=== PATIENT | female | born 1955 | race Caucasian/White ===

== ENCOUNTER 2019-06-09 08:09 | Emergency (ER) | payer OTHER ==
--- OUTSIDE RECORDS SUMMARY | 2019-06-09 08:12 | XMS REPORT ---
:1955 Author Organization [employer] Care Team Providers Name Role Phone Henry, Na Provider Role Unavailable Allergies No Known Allergies Problems Problem Type Condition Code Onset Dates Condition Status Problem Alcoholic cirrhosis of liver with K70.31 Active ascites Problem Jaundice due to hepatitis K75.9 Active Problem Unsteady gait R26.81 Active Medications No Known Medications Results No Known Results Summary Purpose [employer] Submission
--- OUTSIDE RECORDS SUMMARY | 2019-06-09 08:12 | XMS REPORT ---
:1955 Author Organization e[employer] Care Team Providers Name Role Phone Henry, Na Provider Role Unavailable Allergies, Adverse Reactions, Alerts Substance Reaction Event Type Hydrocodone-Acetaminophen Info Not Available Drug Allergy Problems Problem Type Condition Code Onset Dates Condition Status Assessment Hospital discharge follow-up Z09 Active Problem Alcoholic cirrhosis of liver with K70.31 Active ascites Problem Jaundice due to hepatitis K75.9 Active Problem Unsteady gait R26.81 Active Assessment Jaundice due to hepatitis K75.9 Active Assessment Unsteady gait R26.81 Active Assessment Alcoholic cirrhosis of liver with K70.31 Active ascites Medications Medication Code System Code Instructions Start Date End Date Status Dosage Lactulose [facility] [id number] 20 GM/30ML Orally May 12, July 10, Active 30 ml Once a day 2019 2019 Results No Known Results Summary Purpose eClinicalWorks Submission
--- OUTSIDE RECORDS SUMMARY | 2019-06-09 08:12 | XMS REPORT | Summary of Care ---
:1955 Author Organization [facility] Address [address] [place] [address] Care Team Providers Name Role Phone Pcp, Patient Does Not Have A Primary Care Provider Encounter Details Date Type Department Care Team Description 05/11/2019 Orders Only [facility] Doctor Unassigned, No [address] [facility] [place] [address] [address] [place] [address] Allergies Active Allergy Reactions Severity Noted Date Comments Hydrocodone Itching 01/22/2016 documented as of this encounter (statuses as of 05/11/2019) Medications Medication Sig Dispensed Refills Start Date End Date Status ondansetron 4 mg Take 1 tablet 15 tablet 0 04/29/2019 Active disintegrating by mouth every tabletIndications: 8 (eight) hours Hyperbilirubinemia as needed for Nausea and Vomiting (N/V). documented as of this encounter (statuses as of 05/11/2019) Active Problems Problem Noted Date E44.0 Moderate protein calorie malnutrition 04/19/2019 Jaundice 04/18/2019 Left wrist pain 03/05/2016 documented as of this encounter (statuses as of 05/11/2019) Social History Tobacco Use Types Packs/Day Years Used Date Never Smoker Smokeless Tobacco: Never Used Alcohol Use Drinks/Week oz/Week Comments Yes 0 Standard drinks or equivalent 0.0 Alcohol Habits Answer Date Recorded How often do you have a drink containing 4 or more times a week 04/18/2019 alcohol? How many drinks containing alcohol do you have 1 or 2 04/18/2019 on a typical day when you are drinking? How often do you have six or more drinks on one Never 04/18/2019 occasion? Sex Assigned at Date Recorded Not on file Job Start Date Occupation Industry Not on file Not on file Not on file Travel History Travel Start Travel End No recent travel history available. documented as of this encounter Last Filed Vital Signs Not on filedocumented in this encounter Plan of Treatment Health Maintenance Due Date Last Done Comments PNEUMOCOCCAL 0-64 YEARS COMBINED SERIES (1 of 1 - 1961 PPSV23) DTaP,Tdap,and Td Vaccines (1 - Tdap) 1966 PAP SMEAR 02/23/1976 Breast Cancer Screening (MAMMOGRAM) 1995 Zoster Recombinant Vaccine (SHINGRIX) (1 of 2) 2005 INFLUENZA VACCINE (#1) 2018 COLONOSCOPY 04/26/2029 04/26/2019 HEPATITIS C (HCV) SCREEN Completed 04/19/2019 documented as of this encounter Procedures Procedure Name Priority Date/Time Associated Diagnosis Comments POWER OF ECONOMICS INSTRUCTOR Routine 05/11/2019 12:01 AM MEDIA ANALYST documented in this encounter Results Not on filedocumented in this encounter Insurance Payer Benefit Plan / Subscriber ID Effective Dates Phone Address Type Group HIM [id number] 2018-Present PPO [id number] ACTED RACTED documented as of this encounter Advance Directives Name Relationship Healthcare Agent Relationship Communication Samantha Morrissey Child First alternate healthcare agent
--- OUTSIDE RECORDS SUMMARY | 2019-06-09 08:12 | XMS REPORT ---
:1955 [facility] Address [address] [place] [address] [address] [place] [address] Care Team Providers Name Role Phone ELIUDCliffordMORALES Unavailable Unavailable Problems This patient has no known problems. Allergies, Adverse Reactions, Alerts This patient has no known allergies or adverse reactions. Medications This patient has no known medications. Results Test Description Test Time Test Comments Text Results Atomic Results Result Comments LIVER IMAGING, 2019-05-27 16:51:00 Referring: Dr. Panchal FINAL REPORT [id number] PROCEDURE: processing LIVER/SPLEEN SCAN - TOMOGRAPHIC w/Quantitative Analysis CPT CODE: [id number] INDICATION: Hepatic Failure, cirrhosis PROTOCOL: 10.9 mCi of Tc-99m sulfur colloid was injected intravenously. Tomographic and selected planar images of the upper abdomen were obtained. Hepatic function was assessed by quantitative analysis using HEPATIQ software. FINDINGS: The liver has small with normal shape. Tracer activity in the liver is markedly decreased. Perfused Hepatic Mass (PHM) by HEPATIQ was 24.7. (Reference Range=>100). The spleen has mildly enlarged. Tracer activity in the spleen is uniform. Activity in the bone marrow is increased. IMPRESSION: 1. There is evidence of severe hepatocellular dysfunction.2. PHM is 24.7. Signed: Donta Santana MDReport Verified Date/Time: 05/27/2019 16:51:13 Reading Location: [address] Reading Room TITIS B SURFACE ANTIBODY 2019-05-20 19:46:00 Test Item Value Reference Range Comments HEPATITIS B SURFACE ANTIBODY (BEAKER) (test nlmy=821) 11.0 mIU/mL <8.0 Java Oracle Developer ID - DBHEPATITIS A ANTIBODY, [id number] 19:46:00 Test Item Value Reference Range Comments HEPATITIS A IGG ANTIBODY (BEAKER) (test xmlb=0225) Reactive Nonreactive Java [employer] Developer ID - DBALPHA FETOPROTEIN (AFP), TUMOR [id number] 19:45:00 Test Item Value Reference Range Comments ALPHA-FETOPROTEIN (BEAKER) (test swob=0941) 4.6 ng/mL <10.0 Java [employer] Developer ID - [id number] 16:00:00 Test Item Value Reference Range Comments MAGNESIUM (BEAKER) (test evqr=930) 1.8 mg/dL 1.6-2.6 Java [employer] Developer ID - BSBASIC METABOLIC [id number] 16:00:00 Test Item Value Reference Range Comments SODIUM (BEAKER) (test 136 meq/L 136-145 grla=931) POTASSIUM (BEAKER) (test 3.6 meq/L 3.5-5.1 ssxq=101) CHLORIDE (BEAKER) (test 105 meq/L 98-107 pvdg=122) CO2 (BEAKER) (test 23 meq/L 22-29 aevr=403) BLOOD UREA NITROGEN 8 mg/dL 7-21 (BEAKER) (test izrn=593) CREATININE (BEAKER) (test 0.57 mg/dL 0.57-1.25 fgcx=798) GLUCOSE RANDOM (BEAKER) 80 mg/dL 70-105 (test bbdr=807) CALCIUM (BEAKER) (test 9.0 mg/dL 8.4-10.2 wwfr=859) EGFR (BEAKER) (test 107 mL/min/1.73 sq m ESTIMATED GFR IS NOT suxq=7322) ACCURATE CREATININE CLEARANCE IN PREDICTING GLOMERULAR FILTRATION RATE. ESTIMATED GFR IS NOT APPLICABLE FOR DIALYSIS PATIENTS. Java Oracle Developer ID - BSSpecimen markedly ictericHEPATIC FUNCTION [id number] 16:00: 00 Test Item Value Reference Range Comments TOTAL PROTEIN (BEAKER) (test yixi=486) 7.3 gm/dL 6.0-8.3 ALBUMIN (BEAKER) (test eqyj=2448) 3.1 g/dL 3.5-5.0 BILIRUBIN TOTAL (BEAKER) (test catq=554) 11.2 mg/dL 0.2-1.2 BILIRUBIN DIRECT (BEAKER) (test pobu=890) 3.8 mg/dL 0.1-0.5 ALKALINE PHOSPHATASE (BEAKER) (test vdvf=426) 172 U/L 40-150 AST (SGOT) (BEAKER) (test yzoe=203) 54 U/L 5-34 ALT (SGPT) (BEAKER) (test faho=295) 23 U/L 6-55 Java Oracle Developer ID - BSSpecimen markedly ictericPROTHROMBIN [id number] 15:45:00 Test Item Value Reference Range Comments PROTIME (BEAKER) (test ydxj=914) 24.6 seconds 11.9-14.2 INR (BEAKER) (test uzzc=041) 2.3 <=5.9 Effective 09/16/2018: PT Reference Range ChangeNew: 11.9-14.2 Previous: 11.7- 14.7RECOMMENDED COUMADIN/WARFARIN INR THERAPY RANGESSTANDARD DOSE: 2.0-3.0 Includes: PROPHYLAXIS for venous thrombosis, systemic embolization; TREATMENT for venous thrombosis and/or pulmonary embolus.HIGH RISK: Target INR is2.5-3.5 for patients wiht mechanical heart valves.CBC W/PLT COUNT & AUTO [id number] 15:36:00 Test Item Value Reference Range Comments WHITE BLOOD CELL COUNT (BEAKER) (test ujyq=115) 6.2 K/ L 3.5-10.5 RED BLOOD CELL COUNT (BEAKER) (test kved=214) 2.06 M/ L 3.93-5.22 HEMOGLOBIN (BEAKER) (test hdzf=666) 8.1 GM/DL 11.2-15.7 HEMATOCRIT (BEAKER) (test bzft=764) 23.7 % 34.1-44.9 MEAN CORPUSCULAR VOLUME (BEAKER) (test rest=399) 115.0 fL 79.4-94.8 MEAN CORPUSCULAR HEMOGLOBIN (BEAKER) (test 39.3 pg 25.6-32.2 dwch=328) MEAN CORPUSCULAR HEMOGLOBIN CONC (BEAKER) (test 34.2 GM/DL 32.2-35.5 rhut=485) RED CELL DISTRIBUTION WIDTH (BEAKER) (test 18.5 % 11.7-14.4 giff=150) PLATELET COUNT (BEAKER) (test rqdw=206) 74 K/CU MM 150-450 MEAN PLATELET VOLUME (BEAKER) (test nujp=845) 9.5 fL 9.4-12.3 NUCLEATED RED BLOOD CELLS (BEAKER) (test 0 /100 WBC 0-0 ywav=030) NEUTROPHILS RELATIVE PERCENT (BEAKER) (test 67 % ozdj=954) LYMPHOCYTES RELATIVE PERCENT (BEAKER) (test 16 % xirl=627) MONOCYTES RELATIVE PERCENT (BEAKER) (test 10 % flyd=273) EOSINOPHILS RELATIVE PERCENT (BEAKER) (test 7 % oifm=520) BASOPHILS RELATIVE PERCENT (BEAKER) (test 1 % fxqy=667) NEUTROPHILS ABSOLUTE COUNT (BEAKER) (test 4.15 K/ L 1.56-6.13 sbzl=698) LYMPHOCYTES ABSOLUTE COUNT (BEAKER) (test 0.97 K/ L 1.18-3.74 kgol=088) MONOCYTES ABSOLUTE COUNT (BEAKER) (test vktv=133) 0.65 K/ L 0.24-0.36 EOSINOPHILS ABSOLUTE COUNT (BEAKER) (test 0.41 K/ L 0.04-0.36 cish=944) BASOPHILS ABSOLUTE COUNT (BEAKER) (test ltnv=936) 0.03 K/ L 0.01-0.08 IMMATURE GRANULOCYTES-RELATIVE PERCENT (BEAKER) 1 % 0-1 (test qodk=6251)
[2019-06-09 09:19] LABS: Protime INR 2.13
[2019-06-09 09:21] LABS: Absolute Lymphocytes (CBC) 0.7 K/uL (0.7-4.9); Basophils % 0.4 % (0-1.3); Lymphocytes % 15.4 % (15.3-44.8); MPV 7.2 fL (7.6-11.3); RBC Red Blood Cell Count 2.57 M/uL (3.86-4.86)
[2019-06-09 09:37] LABS: ALT/SGPT 30 U/L (12-78); AST/SGOT 60 U/L (15-37); Albumin 2.8 g/dL (3.4-5.0); Alkaline Phosphatase 179 U/L (45-117); BUN Blood Urea Nitrogen 7 mg/dL (7-18); Bicarbonate 25 mmol/L (21-32); Bilirubin Direct 3.4 mg/dL (0-0.2); Glucose Level 94 mg/dL (74-106); Lipase 313 U/L (73-393); Potassium 3.3 mmol/L (3.5-5.1); Protein, Total 7.5 g/dL (6.4-8.2); Sodium Level 139 mmol/L (136-145)
[2019-06-09 09:39] LABS: Bilirubin Total 10.8 mg/dL (0.2-1.0)
[2019-06-09 09:51] LABS: Anisocytosis 1+; Blood Morphology Comment NOTED (NOT SEEN); Macrocytosis 1+; Platelet Estimate DECR
[2019-06-09 09:52] LABS: Burr Cells 1+
--- NOTE | 2019-06-09 11:04 | RAD REPORT ---
EXAM DESCRIPTION: RAD - Chest Single View - 06/09/2019 9:03 am CLINICAL HISTORY: COUGH Chest pain. COMPARISON: No comparisons FINDINGS: Portable technique limits examination quality. Mild to moderate airspace opacity is present in the right lung base associated with small right pleur al effusion, favoring pneumonia. The heart is upper limit normal in size. No displaced fractures. IMPRESSION: Qblk-xr-ypxgdosn right lung base pneumonia suspected.
--- NOTE | 2019-06-09 11:23 | ER ---
Nurse's Notes [facility] Name: Opal Bahena Age: 64 yrs Sex: Female : 1955 Arrival Date: 06/09/2019 Time: 08:11 Bed 14 Private MD: Ansley Henry Diagnosis: Unspecified cirrhosis of liver;Pneumonia, unspecified organism Presentation: 06/09 08:20 Care prior to arrival: None. tw2 08:28 Presenting complaint: Patient states: recently diagnosed with cirrhosis in March, iw has had intermittent fever since Friday and has a headache and wheezing, also her ankle and abd have been selling more. Transition of care: patient was not received from another setting of care. Onset of symptoms was June 02, 2019. Risk Assessment: Do you want to hurt yourself or someone else? Patient reports no desire to harm self or others. Initial Sepsis Screen: Does the patient meet any 2 criteria? No. Patient's initial sepsis screen is negative. Does the patient have a suspected source of infection? No. Patient's initial sepsis screen is negative. Care prior to arrival: None. 08:28 Method Of Arrival: Ambulatory iw 08:28 Acuity: JACQUI 3 iw Triage Assessment: 08:44 General: Appears in no apparent distress. slender, Behavior is calm, cooperative, tw2 appropriate for age. Pain: Denies pain. Derm: Skin is jaundiced. Historical: - Allergies: 09:11 Hydrocodone-Acetaminophen; itching; tw2 - Home Meds: 08:44 lactulose 20 gram/30 mL oral soln [Active]; tw2 - PMHx: 08:44 Cirrhosis; tw2 - PSHx: 09:11 left wrist; tw2 - Immunization history:: Adult Immunizations. - Coronavirus screen:: The patient has NOT traveled to [place] in the past 14 days. - Family history:: not pertinent. - Social history:: Smoking status: Patient uses alcohol, "the past 3 years my mom got diagnosed with alzheimers, my shot himself and my dad and i just started drinking a lot, like 3 or 4 drinks a day everyday" pt tearful at this time, pt counselable and significant other at bedside at this time.. - Ebola Screening: : Patient denies travel to an Ebola-affected area in the 21 days before illness onset. - Hospitalizations: : No recent hospitalization is reported. Screenin:30 Abuse screen: Denies threats or abuse. Nutritional screening: No deficits noted. tw2 Tuberculosis screening: No symptoms or risk factors identified. Fall Risk None identified. Assessment: 08:20 Reassessment: Dr. Ruvalcaba at bedside at this time. tw2 08:22 General: Appears in no apparent distress. slender, well groomed, Behavior is calm, tw2 cooperative, appropriate for age. Pain: Denies pain. Neuro: Level of Consciousness is awake, alert, obeys commands, Oriented to person, place, time, situation. Cardiovascular: Heart tones S1 S2 Patient's skin is warm and dry. Respiratory: Airway is patent Respiratory effort is even, unlabored, Respiratory pattern is regular, symmetrical, Breath sounds are clear bilaterally. GI: Abdomen is round distended, Bowel sounds present X 4 quads. Abd is rigid X 4 quads. Reports bloating. : Reports "i go just a little bit, but i feel like i can go more", hesitency. EENT: No signs and/or symptoms were reported regarding the EENT system. Derm: Skin is intact, is healthy with good turgor, Skin is jaundiced, Skin temperature is warm. Musculoskeletal: Capillary refill < 3 seconds, Range of motion: intact in all extremities. 09:19 Reassessment: Patient appears in no apparent distress at this time. No changes from tw2 previously documented assessment. Patient and/or family updated on plan of care and expected duration. Pain level reassessed. 10:43 Reassessment: Patient appears in no apparent distress at this time. No changes from tw2 previously documented assessment. Patient and/or family updated on plan of care and expected duration. Pain level reassessed. NAD, no change from previous assessment. 11:42 Reassessment: Patient appears in no apparent distress at this time. No changes from tw2 previously documented assessment. Patient and/or family updated on plan of care and expected duration. Pain level reassessed. Vital Signs: 08:43 BP 125 / 71; Pulse 99; Resp 18; Temp 98.6; Pulse Ox 98% on R/A; iw 09:11 Weight 57.42 kg (M); Height 5 ft. 3 in. (160.02 cm); tw2 09:19 BP 134 / 58; Pulse 92; Resp 17; Pulse Ox 97% on R/A; tw2 10:20 BP 118 / 65; Pulse 92; Resp 17; Pulse Ox 98% on R/A; tw2 11:42 BP 125 / 55; Pulse 85; Resp 17; Pulse Ox 96% on R/A; tw2 09:11 Body Mass Index 22.43 (57.42 kg, 160.02 cm) tw2 09:11 "i thought i weighed 106 pounds but with this fluid" tw2 ED Course: 08:11 Patient arrived in ED. mr 08:12 Ansley Henry MD is Private Physician. mr 08:14 Dontae Ruvalcaba MD is Attending Physician. rn 08:20 Arm band placed on. tw2 08:20 Bed in low position. Call light in reach. Adult w/ patient. gambling monitor on. Pulse tw2 ox on. NIBP on. 08:24 Zina Rodriguez RN is Primary Nurse. tw2 08:30 Triage completed. iw 09:05 Inserted saline lock: 22 gauge in right antecubital area, using aseptic technique. tw2 Blood collected. 09:37 Flu Sent. tw2 09:37 Strep Sent. tw2 09:44 XRAY Chest (1 view) In Process Unspecified. EDMS 11:42 No provider procedures requiring assistance completed. IV discontinued, intact, tw2 bleeding controlled, No redness/swelling at site. Pressure dressing applied. Administered Medications: 11:38 Drug: LevaQUIN 750 mg Route: PO; tw2 11:41 Follow up: Response: No adverse reaction tw2 Outcome: 11:22 Discharge ordered by . rn 11:42 Patient left the ED. tw2 11:42 Discharged to home ambulatory, with significant other. tw2 11:42 Condition: stable 11:42 Discharge instructions given to patient, significant other, Instructed on discharge instructions, follow up and referral plans. medication usage, Demonstrated understanding of instructions, follow-up care, medications, Prescriptions given X 1. 11:42 No charge visit due to Signatures: Dispatcher [employer] EDOR Ivette Quintero Irene, TREVON LESTER iw Dontae Ruvalcaba MD MD rn Wise, Tara, RN RN tw2 Corrections: (The following items were deleted from the chart) 08:54 08:43 BP 125 / 71; Pulse 99bpm; Resp 18bpm; Pulse Ox 98% RA; tw2 iw 09:53 08:31 Social history: Smoking status: tw2 tw2 09:54 08:31 Social history: Smoking status: Patient uses alcohol, "the past 3 years my mom tw2 got diagnosed with alzheimers, my shot himself and my dad and i just started drinking a lot, like 3 or 4 drinks a day everyday" pt tearful at this time, pt counselable and significant other at bedside at this time.. tw2 10:43 09:19 Reassessment: Patient appears in no apparent distress at this time. No changes tw2 from previously documented assessment. Patient and/or family updated on plan of care and expected duration. Pain level reassessed. Patient is alert, oriented x 3, equal unlabored respirations, skin warm/dry/pink. tw2
--- NOTE | 2019-06-09 11:23 | EDPHYS ---
Physician Documentation [facility] Name: Opal Bahena Age: 64 yrs Sex: Female : 1955 Arrival Date: 06/09/2019 Time: 08:11 Bed 14 Private MD: Ansley Henry ED Physician Dontae Ruvalcaba HPI: 06/09 08:46 This 64 yrs old Female presents to ER via Ambulatory with complaints of rn Fever, swelling. 08:46 The patient reports fever, not measured (subjective). Onset: The symptoms/episode rn began/occurred 1 week(s) ago. Modifying factors: there are no obvious modifying factors. Associated signs and symptoms: Pertinent positives: cough, Pertinent negatives: abdominal pain, altered mental status. 08:47 Severity of symptoms: At their worst the symptoms were mild in the emergency department rn the symptoms are unchanged. The patient has experienced similar episodes in the past, chronically. The patient has not recently seen a physician. Reports diagnosed with cirrhosis in March, since then has had progressive swelling of abdomen and legs, fatigue. Takes only lactulose but once a day. Reports subjective fever last week but none in last few days. + productive cough. Also reports decreased urine production in last week as well, able to urinate but only small amount. . Historical: - Allergies: 09:11 Hydrocodone-Acetaminophen; itching; tw2 - Home Meds: 08:44 lactulose 20 gram/30 mL oral soln [Active]; tw2 - PMHx: 08:44 Cirrhosis; tw2 - PSHx: 09:11 left wrist; tw2 - Immunization history:: Adult Immunizations. - Coronavirus screen:: The patient has NOT traveled to [place] in the past 14 days. - Family history:: not pertinent. - Social history:: Smoking status: Patient uses alcohol, "the past 3 years my mom got diagnosed with alzheimers, my shot himself and my dad and i just started drinking a lot, like 3 or 4 drinks a day everyday" pt tearful at this time, pt counselable and significant other at bedside at this time.. - Ebola Screening: : Patient denies travel to an Ebola-affected area in the 21 days before illness onset. - Hospitalizations: : No recent hospitalization is reported. ROS: 08:47 Constitutional: Negative for chills Eyes: Negative for injury, pain, redness, and shank burnisher, Neck: Negative for injury, pain, and swelling, Cardiovascular: Negative for chest pain, palpitations Respiratory: + cough, negative for sob Abdomen/GI: Negative for abdominal pain, nausea, vomiting, and constipation, no blood in stool : + decreased urine production MS/Extremity: Negative for injury and deformity, Skin: + yellow of skin Neuro: + generalized weakness Exam: 08:47 Constitutional: Thin female, no acute distress, ambulatory to room without difficulty rn or assistance Head/Face: Normocephalic, atraumatic. Eyes: + scleral icterus ENT: dry MM Cardiovascular: Regular rate and rhythm. No pulse deficits. Respiratory: Diminished breath sounds at bases, speaking full sentences, unlabored breathing Abdomen/GI: soft, + fluid wave, non-tender, no rebound MS/ Extremity: Pulses equal, no cyanosis. Neurovascular intact. Full, normal range of motion. Equal circumference. 1+ pitting edema bilateral lower ext Neuro: Awake and alert, GCS 15, oriented to person, place, time, and situation. Cranial nerves II-XII grossly intact. Motor strength 5/5 in all extremities. Sensory grossly intact. Cerebellar exam normal. Normal gait. Vital Signs: 08:43 BP 125 / 71; Pulse 99; Resp 18; Temp 98.6; Pulse Ox 98% on R/A; iw 09:11 Weight 57.42 kg (M); Height 5 ft. 3 in. (160.02 cm); tw2 09:19 BP 134 / 58; Pulse 92; Resp 17; Pulse Ox 97% on R/A; tw2 10:20 BP 118 / 65; Pulse 92; Resp 17; Pulse Ox 98% on R/A; tw2 11:42 BP 125 / 55; Pulse 85; Resp 17; Pulse Ox 96% on R/A; tw2 09:11 Body Mass Index 22.43 (57.42 kg, 160.02 cm) tw2 09:11 "i thought i weighed 106 pounds but with this fluid" tw2 MDM: 08:21 Patient medically screened. rn 11:20 Differential diagnosis: viral Infection, bacterial infection, pneumonia UTI. Data rn reviewed: vital signs, nurses notes, lab test result(s), radiologic studies, plain films, and as a result, I will discharge patient. Counseling: I had a detailed discussion with the patient and/or guardian regarding: the historical points, exam findings, and any diagnostic results supporting the discharge/admit diagnosis, lab results, radiology results, the need for outpatient follow up, to return to the emergency department if symptoms worsen or persist or if there are any questions or concerns that arise at home. Response to treatment: the patient's symptoms have mildly improved after treatment, and as a result, I will discharge patient. Special discussion: I discussed with the patient/guardian in detail that at this point there is no indication for admission to the hospital. It is understood, however, that if the symptoms persist or worsen the patient needs to return immediately for re-evaluation. Based on the history and exam findings, there is no indication for further emergent testing or inpatient evaluation. I discussed with the patient/guardian the need to see the correctional case records supervisor for further evaluation of the symptoms. I discussed with the patient/guardian the need to see the primary care provider for further evaluation of the symptoms. ED course: Pt with early RLL pneumonia on CXR, given levaquin here, no oxygen requirement, afebrile, feels ok, will dc home with abx, pcp f/u, and f/u with her liver doctor. . 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 06/09 08:40 Order name: Hepatic Function rn 06/09 08:40 Order name: Lipase rn 06/09 08:40 Order name: Flu; Complete Time: 10:10 06/09 08:40 Order name: XRAY Chest (1 view) rn 06/09 08:40 Order name: PT-INR; Complete Time: 09:35 rn 06/09 08:42 Order name: Strep; Complete Time: 10:10 rn 06/09 08:47 Order name: AMMONIA; Complete Time: 10:26 rn 06/09 09:52 Order name: Manual Differential; Complete Time: 10:10 EDNC 06/09 10:23 Order name: Throat Culture [facility] 06/09 08:40 Order name: IV Saline Lock; Complete Time: 09:37 rn 06/09 08:40 Order name: Labs collected and sent; Complete Time: 09:37 rn Administered Medications: 11:38 Drug: LevaQUIN 750 mg Route: PO; tw2 11:41 Follow up: Response: No adverse reaction tw2 Disposition: 06/09/19 11:22 Discharged to Home. Impression: Unspecified cirrhosis of liver, Pneumonia, unspecified organism. - Condition is Stable. - Discharge Instructions: Ascites, Community-Acquired Pneumonia, Adult. - Prescriptions for Levaquin 750 mg Oral Tablet - take 1 tablet by ORAL route once daily for 10 days; 10 tablet. - Medication Reconciliation Form, Thank You Letter, Antibiotic Education, Prescription Opioid Use form. - Follow up: Private Physician; When: 2 - 3 days; Reason: Recheck today's complaints, Re-evaluation by your physician. - Problem is new. - Symptoms have improved. Signatures: Dispatcher [employer] EDDontae Boudreaux MD MD rn Wise, Tara, RN RN tw2 Corrections: (The following items were deleted from the chart) 09:53 08:31 Social history: Smoking status: [facility] tw2 09:54 08:31 Social history: Smoking status: Patient uses alcohol, "the past 3 years my mom tw2 got diagnosed with alzheimers, my shot himself and my dad and i just started drinking a lot, like 3 or 4 drinks a day everyday" pt tearful at this time, pt counselable and significant other at bedside at this time.. tw2 11:42 11:22 06/09/2019 11:22 Discharged to Home. Impression: Unspecified cirrhosis of liver; tw2 Pneumonia, unspecified organism. Condition is Stable. Forms are Medication Reconciliation Form, Thank You Letter, Antibiotic Education, Prescription Opioid Use. Follow up: Private Physician; When: 2 - 3 days; Reason: Recheck today's complaints, Re-evaluation by your physician. Problem is new. Symptoms have improved. rn
[2019-06-09] MEDS ORDERED: levoFLOXacin 750 MG TAB ONE (11:34)
[2019-06-09 12:49] VITALS: BP 125/55; O2SAT 96
[2019-06-09 13:18] VITALS: TEMP 98.6
== END 2019-06-09 11:42 | disposition home or self-care (01) ==
LOC: ER 08:09
DX: J18.9 Pneumonia, unspecified organism (principal); K74.60 Unspecified cirrhosis of liver; Z88.6 Allergy status to analgesic agent
CPT/HCPCS: 36415; 71045; 80048; 80076; 82140; 83690; 85025; 85610; 87070; 87081; 87804

== ENCOUNTER 2019-08-31 06:36 | Inpatient (IN) | payer OTHER ==
--- OUTSIDE RECORDS SUMMARY | 2019-08-31 06:39 | XMS REPORT ---
:1955 Author Organization [employer] Care Team Providers Name Role Phone Henry, Na Provider Role Unavailable Allergies No Known Allergies Problems Problem Type Condition Code Onset Dates Condition Statu s Problem Alcoholic cirrhosis of liver with K70.31 Active ascites Problem Jaundice due to hepatitis K75.9 Ac tive Problem Unsteady gait R26.81 Active Medications No Known Medications Results No Known Results Summary Purpose [employer] Submission
--- OUTSIDE RECORDS SUMMARY | 2019-08-31 06:39 | XMS REPORT | Clinical Summary ---
:1955 Author Organization [facility] Address [address] [place] [address] Care Team Providers Name Role Phone Gerri Henry Primary Care Provider Allergies Active Allergy Reactions Severity Noted Date Comments Hydrocodone Itching 01/22/2016 Medications Medication Sig Dispensed Refills Start Date End Date Status lactulose (CHRONULAC) Take by 0 05/12/2019 Active 20 gram/30 mL mouth daily solution . furosemide (LASIX) 20 Take 1 30 tablet 3 06/16/2019 020 Active MG tabletIndications: tablet (20 Pedal edema mg total) by mouth daily for 120 days. spironolactone Take 1 30 tablet 3 06/16/2019 10/14/2019 Act tuan (ALDACTONE) 50 MG tablet (50 tabletIndications: mg total) by Pedal edema mouth daily for 120 days. MULTIVITAMIN-ZINC Take by 0 Ac tive OXIDE ORAL mouth daily. lactulose (CEPHULAC) Take 20 g by 0 2019 Discontinued 10 gram packet mouth daily. Active Problems Problem Noted Date Cirrhosis 05/20/2019 Ascites 05/20/2019 Portal hypertension 05/20/2019 Immunity status testing 05/20/2019 Screening for malignant neoplasm 05/20/2019 Jaundice 05/20/2019 Elevated liver enzymes 05/20/2019 Hepatic encephalopathy 05/20/2019 Cirrhosis 05/20/2019 Encounters Date Type Specialty Care Team Description 07/08/2019 Abstract Hepatology Mary Ochoa MA 07/01/2019 Office Visit Hepatology Lenard Romero MD 07/01/2019 Documentation Transplant Joya, Hepatology Yamile Henao RN 06/25/2019 Hospital Encounter Radiology Lenard Romero MD 06/25/2019 Documentation Hepatology Johnny Mccracken NP 06/24/2019 Abstract Transplant Santiago Deal RN 06/24/2019 Documentation Transplant Santiago Deal RN 06/17/2019 Orders Only Hepatology Kirill, Riri Tam, SHAPER HAND 06/16/2019 Telephone Hepatology Johnny Mccracken NP of the day damian Damon NP (fluid issues ) 06/16/2019 Orders Only Hepatology Johnny Mccracken NP 06/15/2019 Orders Only Hepatology Lenard Romero Cirrhosis of l iver without ascites, unspecified hepatic cirrhosis type (HCC) (Primary Dx); MD Royer Hepatic encepha lopathy (HCC); Portal hyperten wolfgang (HCC) 06/14/2019 Abstract Hepatology Betsy Bey MA 06/10/2019 Documentation Hepatology Betsy Bey MA 06/03/2019 Orders Only Lab Lenard Romero Elevated liver enzymes MD Royer (Primary Dx) 06/01/2019 Abstract Hepatology Betsy Bey MA 06/01/2019 Abstract Hepatology Betsy Bey MA 05/27/2019 Hospital Encounter Radiology Lenard Romero Jaundice MD Royer 05/25/2019 Abstract Hepatology Dixie Gillette E 05/20/2019 Office Visit Hepatology Lenard Romero Portal hyperte nsion (HCC); MD Royer Immunity status testing; Screening for m alignant neoplasm; Jaundice; Elevated liver enzymes; Hepatic encepha lopathy (HCC) 05/20/2019 Abstract Transplant Abhishek Osorio Hepatology MD Raciel after 08/30/2018 Family History Medical History Relation Name Comments No Known Problem Brother No Known Problem Daughter No Known Problem Daughter Alzheimer's disease Mother Relation Name Status Comments Brother Alive Daughter Alive Daughter Alive Father Mother Social History Tobacco Use Types Packs/Day Years Used Date Never Smoker Smokeless Tobacco: Never Used Alcohol Use Drinks/Week oz/Week Comments Yes BEER, VODKA Sex Assigned at Date Recorded Not on file Job Start Date Occupation Industry Not on file Not on file Not on file Travel History Travel Start Travel End No recent travel history available. Last Filed Vital Signs Vital Sign Reading Time Taken Blood Pressure 114/65 07/01/2019 3:07 PM CDT Pulse 98 05/20/2019 11:12 AM [employer] Temperature 37.2 C (99 F) 05/20/2019 11:12 AM [employer] HEL[employer] Respiratory Rate 16 05/20/2019 11:12 AM [employer] HELPER Oxygen Saturation 98% 05/20/2019 11:12 AM [employer]BLE [employer]TER HELPER Inhaled Oxygen Concentration - - Weight 52.2 kg (115 lb 1.6 oz) 07/01/2019 3:07 PM CDT Height 160 cm (5' 3") 07/01/2019 3:07 PM CDT Body Mass Index 20.39 07/01/2019 3:07 PM CDT Plan of Treatment Date Type Specialty Care Team Description 10/01/2019 Office Visit Hepatology Health Maintenance Due Date Last Done Comments BREAST CANCER SCREENING 1955 COLON CANCER SCREENING COLONOSCOPY 1955 PNEUMOCOCCAL VACCINE 2-64 YEARS AT RISK (1 - 1961 PPSV23) CERVICAL CANCER SCREENING PAP ONLY (Age 21-65) 02/23/1976 INFLUENZA VACCINE (Season Ended) 2019 Procedures Procedure Name Priority Date/Time Associated Diagnosis Comme nts NM LIVER SPECT Routine 06/25/2019 1:48 Cirrhosis of liver Res ults for this PM [employer] without ascites, procedure a re in unspecified hepatic the resu lts cirrhosis type ( HCC) section. Hepatic encephalopathy ( HCC) Portal hypertension (HCC) PLATELET ESTIMATION Routine 06/23/2019 9:42 Resu lts for this AM [employer] procedure are i n the results section. BASIC METABOLIC Routine 06/23/2019 9:42 Pedal edema Results for this PANEL (7) AM [employer] procedure are i n the results section. HEPATIC FUNCTION Routine 06/23/2019 9:42 Pedal edema Results for this PANEL AM [employer] procedure are i n the results section. CBC W/PLT COUNT & Routine 06/23/2019 9:42 Pedal edema Result s for this AUTO DIFFERENTIAL AM [employer] procedure are in the results section. PROTHROMBIN TIME/INR Routine 06/23/2019 9:42 Pedal edema Res ults for this AM [employer] procedure are i n the results section. OUTSIDE CONSULTATION AP Routine 06/03/2019 9:05 Elevated liver R esults for this AM [employer] enzymes procedure are i n the results section. NM LIVER SPECT Routine 05/27/2019 2:36 Jaundice Results f or this PM [employer] procedure are i n the results section. CBC W/PLT COUNT & Routine 05/20/2019 1:23 Elevated liver Resu lts for this AUTO DIFFERENTIAL PM [employer] enzymes procedure are in the results section. HEPATITIS B SURFACE Routine 05/20/2019 1:23 Elevated liver Re sults for this ANTIBODY PM [employer] enzymes procedure are i n the results section. HEPATITIS A Routine 05/20/2019 1:23 Elevated liver Results f or this ANTIBODY, IGG PM [employer] enzymes procedure are in the results section. ZINC Routine 05/20/2019 1:23 Elevated liver Results f or this PM [employer] enzymes procedure are i n the results section. MAGNESIUM Routine 05/20/2019 1:23 Elevated liver Results f or this PM [employer] enzymes procedure are i n the results section. ALPHA FETOPROTEIN Routine 05/20/2019 1:23 Elevated liver Resu lts for this (AFP), TUMOR MARKER PM [employer]TER HELPER enzymes procedur e are in the results section. PROTHROMBIN TIME/INR Routine 05/20/2019 1:23 Elevated liver R esults for this PM [employer] enzymes procedure are i n the results section. CBC W/PLT COUNT & Routine 05/20/2019 1:23 Elevated liver Resu lts for this AUTO DIFFERENTIAL PM [employer] enzymes procedure are in the results section. HEPATIC FUNCTION Routine 05/20/2019 1:23 Elevated liver Resul ts for this PANEL PM [employer] enzymes procedure are i n the results section. BASIC METABOLIC Routine 05/20/2019 1:23 Elevated liver Result s for this PANEL (7) PM [employer] enzymes procedure are i n the results section. after 08/30/2018 Results NM liver SPECT (06/25/2019 1:48 PM [employer]BLE SETTER HELPER)Only the most recent of2 resultswithin the time period is included. Specimen Narrative Performed At FINAL REPORT [facility] PROCEDURE: LIVER/SPLEEN SCAN - S PECT w/Quantitative Analysis CPT CODE:62011 INDICATION:Cirrhosis PROTOCOL:10.6 mCi of Tc-99m sulfur colloid was injected intravenously. Tomographic (SPECT) and s elected planar images of the upper abdomen were obtained. Hepatic fun ction was assessed by quantitative analysis using [employer] soft [place]. FINDINGS:The liver is small with marke dly decreased tracer activity. Perfused Hepatic Mass (PHM) by HEPATIQ was 19.3. (Reference Range = >100). Further details are included in the HEPA TIQ report available in [facility] PACS. The spleen is mildly enlarged with relat tuan increase in tracer activity. Activity in the bone marrow is markedly increased. IMPRESSION: 1. There is severe hepatocellular dysfun ction, similar to the study of 05/27/2019. 2. PHM is markedly decreased, similar to the previous study. Signed: Mag Estes MD Report Verified Date/Time:06/25/2019 16:46:04 Reading Location: [address] [facility] Reading Room Procedure Note Interface, External Ris In - 06/25/2019 4:48 PM MARBLE SETTER HELPER FINAL REPORT PROCEDURE: LIVER/SPLEEN SCAN - SPECT w/Quantitative Analysis CPT CODE: [id number] INDICATION: Cirrhosis PROTOCOL: 10.6 mCi of Tc-99m sulfur colloid was injected intravenously. Tomographic (SPECT) and s elected planar images of the upper abdomen were obtained. Hepatic fun ction was assessed by quantitative analysis using HEPATIQ soft [place]. FINDINGS: The liver is small with markedly decreased tracer activity. Perfused Hepatic Mass (PHM) by HEPATIQ was 19.3. (Reference Range = >100). Further details are included in the HEPA TIQ report available in [facility] PACS. The spleen is mildly enlarged with relat tuan increase in tracer activity. Activity in the bone marrow is markedly increased. IMPRESSION: 1. There is severe hepatocellular dysfun ction, similar to the study of 05/27/2019. 2. PHM is markedly decreased, similar to the previous study. Signed: Mag Estes MD Report Verified Date/Time: 06/25/2019 1 6:46:04 Reading Location: [address] [facility] Reading Room Performing Organization Address City/State/Zipcode Phone Number RIS PLATELET ESTIMATION (06/23/2019 9:42 AM MARBLE SETTER HELPER) Platelet Estimate DECREASED (A) ADEQUATE [facility] Specimen Narrative Performed At FASTING:NO [facility] FASTING: NO Resulting Agency Comment Performing Organization Information: Site ID: [id number] Name: [facility] Address: [address] [place] [phone] Director: Rickey Hensley Performing Organization Address [facility] Phone Number [facility] [address] [place] [address] [facility] Pro-time/INR (06/23/2019 9:42 AM MARBLE SETTER HELPER)Only the most recent of2 resultswithin the time period is included. INR 1.7 (H) [facility] Comment: Reference Range 0.9-1.1 Moderate-intensity Warfarin Therapy 2.0-3.0 Higher-intensity Warfarin Therapy 3.0-4.0 PT 18.0 (H) 9.0 - 11.5 sec [facility] Comment: For more information on this test, go to: http://education.Promedior/faq/BBS720 Specimen Blood Narrative Performed At FASTING:NO [facility] FASTING: NO Resulting Agency Comment Performing Organization Information: Site ID: [id number] Name: [facility] Address: [address] [place] [phone] Director: Rickey Hensley Performing Organization Address [facility] Phone Number [facility] [address] [place] [address] [facility] CBC with platelet count + automated diff (06/23/2019 9:42 AM MARBLE SETTER HELPER) WBC 4.4 3.8 - 10.8 Thousand/uL [facility] RBC 2.67 (L) 3.80 - 5.10 Million/uL [facility] Hemoglobin 9.8 (L) 11.7 - 15.5 g/dL [facility] Hematocrit 27.0 (L) 35.0 - 45.0 % [facility] MCV 101.1 (H) 80.0 - 100.0 fL [facility] MCH 36.7 (H) 27.0 - 33.0 pg [facility] MCHC 36.3 (H) 32.0 - 36.0 g/dL [facility] RDW 11.6 11.0 - 15.0 % [facility] Platelets 81 (L) 140 - 400 Thousand/uL [facility] MPV 8.7 7.5 - 12.5 fL [facility] # Neutros 2,728 1,500 - 7,800 cells/uL [facility] # Lymphs 840 (L) 850 - 3,900 cells/uL [facility] # Monos 568 200 - 950 cells/uL [facility] # Eos 233 15 - 500 cells/uL [facility] # Baso 31 0 - 200 cells/uL [facility] % Neutros 62 % [facility] % Lymphs 19.1 % [facility] % Monos 12.9 % [facility] % Eos 5.3 % [facility] % Baso 0.7 % [facility] Specimen Blood Narrative Performed At FASTING:NO [facility] FASTING: NO Resulting Agency Comment Performing Organization Information: Site ID: [id number] Name: [facility] Address: [address] [place] [phone] Director: Rickey Hensely Performing Organization Address [facility] Services[facility] Phone Number [facility] [address] [place] [address] [facility] [place] Hepatic function panel (06/23/2019 9:42 AM MARBLE SETTER HELPER)Only the most recent of2 results within the time period is included. Protein, Total, Serum 7.2 6.1 - 8.1 g/dL [facility] Albumin 3.2 (L) 3.6 - 5.1 g/dL [facility] GLOBULIN (QUEST) 4.0 (H) 1.9 - 3.7 g/dL (calc) [facility] Albumin Globulin Ratio 0.8 (L) 1.0 - 2.5 (calc) [facility] Bilirubin, Total 11.1 (H) 0.2 - 1.2 mg/dL [facility] Bilirubin, Direct 2.7 (H) < OR = 0.2 mg/dL [facility] Bilirubin, Indirect 8.4 (H) 0.2 - 1.2 mg/dL (calc) [facility] Alkaline Phosphatase, S 183 (H) 37 - 153 U/L [facility] AST (SGOT) 45 (H) 10 - 35 U/L [facility] ALT (SGPT) 18 6 - 29 U/L [facility] Specimen Blood Narrative Performed At FASTING:NO [facility] FASTING: NO Resulting Agency Comment Performing Organization Information: Site ID: [id number] Name: [facility] Address: [address] [place] [phone] Director: Rickey Hensley Performing Organization Address City/[facility] Phone Number [facility] [address] [place] [address] [facility] Basic Metabolic Panel (06/23/2019 9:42 AM MARBLE SETTER HELPER)Only the most recent of2 results within the time period is included. Glucose 86 65 - 139 mg/dL [facility] Comment: Non-fasting reference interval BUN 8 7 - 25 mg/dL [facility] Creatinine 0.55 0.50 - 0.99 mg/dL [facility] Comment: For patients >49 years of age, the reference butt it for Creatinine is approximately 13% higher for p eople identified as -Cuban. eGFR If NonAfricn Am 99 > OR = 60 [facility] mL/min/1.73m2 eGFR If Africn Am 115 > OR = 60 [facility] mL/min/1.73m2 BUN/Creatinine Ratio NOT APPLICABLE 6 - 22 (calc) [facility] Sodium 138 135 - 146 mmol/L [facility] Potassium, Serum 3.8 3.5 - 5.3 mmol/L [facility] Chloride 102 98 - 110 mmol/L [facility] Carbon Dioxide, Total 28 20 - 32 mmol/L [facility] Calcium, Serum 8.9 8.6 - 10.4 mg/dL [facility] Specimen Blood Narrative Performed At FASTING:NO [facility] FASTING: NO Resulting Agency Comment Performing Organization Information: Site ID: [id number] Name: [facility] Address: [address] [place] [phone] Director: Rickey Hensley Performing Organization Address City/State/Zipcode Phone Number [facility] [address] [place] [address] [facility] Outside Consultuation (06/03/2019 9:05 AM MARBLE SETTER HELPER) Case Report Surgical Pathology Report Case: [id number] [facility] Authorizing Provider:Lenard Leary, MDCollected: 06/03/2019 0905 [facility]atoryReceived:06/03/19 20 0907 Pathologist: Josh Reeves MD Specimen:Biopsy, Hetal er, Received 5 slides from [facility] Health label [id number] DIAGNOSIS OUTSIDE SLIDES, [id number], N EEDLE BIOPSIES OF LIVER, (DATE OF PROCEDURE 04/27/2019) [facility] - CIRRHOSIS [facility] - STEATOHEPATITIS ([place]) COMMENT The case was discussed at e weekly liver biopsy conference held in the [facility] at [facility] on July 02, 2019. [facility] One HE stained slide is retained for our records . [facility] CPT Code(s) [address] [facility] HE ALTH [facility] ER CLINICAL HISTORY Cirrhosis, ascites, elevated [facility] liver enzymes [facility] SPECIMEN SOURCE Outside slides, [id number], [facility] Jonny [facility] liver needle core biopsy, date B [facility] of procedure 04/27/2019, received from The Department of Pathology, [place] [address]. GROSS DESCRIPTION Received five glass slides, [facility] each labeled [id number], along [facility] with the pathology report. MICROSCOPIC DESCRIPTION Section shows three cores of liver parenchyma with greater than 10 portal tracts and is adequate for evaluation. Trichrome and reticulin stains show bridging fibrosis and micronodularity consistent with [facility] cirrhosis. Focal central to portal bridging fibrosis is seen. Extensive pericellular fibrosis is present. The fibrous septa show mild chronic lymphoplasmacytic inflammation and cholangiolar proliferat [facility] ion with associated neutroph ils. The bile ducts are preserved and unremarkable. Rare focus of ductular cholestasis is present. There is diffuse steatosis, predominantly large droplet type involving abou t 60% of liver parenchyma. F oci of ballooning degeneration with well formed Marcia Denk hyaline are present. Mild lobular infiltration by neutrophils is seen. No hyaline globules are seen on PASD stain . Iron stain shows 2+ staining of the hepatocyte s Specimen Tissue - Biopsy, Liver Narrative Performed At This result has an attachment that is no t available. Performing Organization Address City/State/Zipcode Phone Number [facility] [address] [place] [address] CENTER Hepatitis A Antibody, IgG ([facility] Only) (05/20/2019 1:23 PM MARBLE SETTER HELPER) Hep A IgG Reactive (A) Nonreactive [facility] ALTH [facility] Specimen Blood Narrative Performed At [employer] Feeder ID - DB [facility] Performing Organization Address City/State/Zipcode Phone Number [facility] [address] [place] [address] CENTER CBC with platelet count + automated diff (05/20/2019 1:23 PM MARBLE SETTER HELPER) WBC 6.2 3.5 - 10.5 K/L [facility] H [facility]ALTH [facility] RBC 2.06 (L) 3.93 - 5.22 M/L [facility] Hemoglobin 8.1 (L) 11.2 - 15.7 GM/DL [facility] Hematocrit 23.7 (L) 34.1 - 44.9 % [facility] ALTH [facility] MCV 115.0 (H) 79.4 - 94.[address] [facility] MCH 39.3 (H) 25.6 - 32.[address] [facility] ALTH [facility] MCHC 34.2 32.2 - 35.5 GM/DL [facility] RDW 18.5 (H) 11.7 - 14.4 % [facility] ALTH [facility] Platelets 74 (L) 150 - 450 K/CU MM [facility] MPV 9.5 9.4 - 12.[address] [facility] AL[facility] nRBC 0 0 - 0 /100 WBC [facility] % Neutros 67 % [facility] % Lymphs 16 % [facility] % Monos 10 % [facility] % Eos 7 % [facility] % Baso 1 % [facility] # Neutros 4.15 1.56 - 6.13 K/L [facility] # Lymphs 0.97 (L) 1.18 - 3.74 K/L [facility] # Monos 0.65 (H) 0.24 - 0.36 K/L [facility] # Eos 0.41 (H) 0.04 - 0.36 K/L [facility] # Baso 0.03 0.01 - 0.08 K/L [facility] Immature 1 0 - 1 % [facility] Granulocytes-Relative [facility] Specimen Blood Performing Organization Address City/State/Zipcode Phone Number [address] [address] CENTER Zinc (05/20/2019 1:23 PM MARBLE SETTER HELPER) Zinc 27 (L) 60 - 130 mcg/dL [facility] Comment: INCORPORATED This test was developed and its analytical perf ormance characteristics have been determined by [facility] [employer]. It has not been cleared or a pproved by the [place] Food and Drug Administration. This assay has bee n validated pursuant to the CLIA regulations and is used for clinical purposes. ZINC Confirmed by repeat analysis. Specimen Blood Narrative Performed At Performing Lab [facility] *[facility] Chantal [facility], [address] [place] [phone] Jo Solo MD, PhD Performing Organization Address City/[facility] Phone Number [facility], [place] [address] 0 INCORPORATED [address] [facility] Alpha fetoprotein (AFP), tumor marker (05/20/2019 1:23 PM MARBLE SETTER HELPER) Alpha-Fetoprotein 4.6 <10.0 ng/mL [facility] Specimen Blood Narrative Performed At [employer] Feeder ID - DB [facility] Performing Organization Address City/State/Zipcode Phone Number [address] [address] CENTER Hepatitis B surface antibody (05/20/2019 1:23 PM MARBLE SETTER HELPER) Hep B S Ab 11.0 (H) <8.0 mIU/mL [facility] Specimen Blood Narrative Performed At [employer] Machine Feeder ID - DB [facility] Performing Organization Address City/State/[facility] Phone Number [facility] [address] [place] [address] CENTER Magnesium (05/20/2019 1:23 PM MARBLE SETTER HELPER) Magnesium 1.8 1.6 - 2.6 mg/dL [facility] Specimen Blood Narrative Performed At [employer] Feeder ID - BS [facility] Performing Organization Address City/[facility]/Zipcode Phone Number [facility] [address] [place] [address] CENTER after 08/30/2018 Insurance Payer Benefit Plan / Group Subscriber ID Type Phone A dorothea PARSONS xxxxxxxxxxx
--- OUTSIDE RECORDS SUMMARY | 2019-08-31 06:39 | XMS REPORT ---
:1955 Author Organization [employer] Care Team Providers Name Role Phone Henry, Na Provider Role Unavailable Allergies, Adverse Reactions, Alerts Substance Reaction Event Type Hydrocodone-Acetaminophen Info Not Available Drug Allergy Problems Problem Type Condition Code Onset Dates Condition Statu s Assessment Hospital discharge follow-up Z09 Active Problem Alcoholic cirrhosis of liver with K70.31 Active ascites Problem Jaundice due to hepatitis K75.9 Ac tive Problem Unsteady gait R26.81 Active Assessment Jaundice due to hepatitis K75.9 Ac tive Assessment Unsteady gait R26.81 Active Assessment Alcoholic cirrhosis of liver with K70.31 Active ascites Medications Medication Code System Code Instructions Start Date End Date Status Dosage Lactulose [facility] [id number] 20 GM/30ML Orally May 12July 10, Active 30 ml Once a day 2019 2019 Results No Known Results Summary Purpose eClinicalWorks Submission
--- OUTSIDE RECORDS SUMMARY | 2019-08-31 06:39 | XMS REPORT ---
:1955 Author Organization [facility] t Address [address] [place] [address] Dr. Rodriguez [address] [place] [address] Care Team Providers Name Role Phone NEERAJ DONALD Unavailable Unavailable Problems Condition Condition Condition Status Onset Resolution Last Treatin g Comments Name Details Category Date Date Treatment Clinician Date Alcoholic Alcoholic Problem Active cirrhosis cirrhosis of liver of liver with with ascites ascites Jaundice Jaundice Problem Active due to due to hepatitis hepatitis Unsteady Unsteady Problem Active gait gait Localized Localized Problem Active edema edema Pneumonia Pneumonia Problem Active of right of right lower lobe lower lobe due to due to infectious infectious organism organism Jaundice Jaundice Problem Active Allergies, Adverse Reactions, Alerts Allergy Allergy Status Severity Reaction(s) Onset Inactive Treating C omments Name Type Date Date Clinician Hydrocodo Adverse Active Info Not ne-Acetam Reaction Available inophen Medications Ordered Filled Start Stop Current Ordering Indication Dosage Frequency Signature Comments Components Medication Medication Date Date Medication? Clinician (SIG) Name Name Lactulose Lactulose 2019- No Isabella 30 ml 05-12 Amaya 00:00: 00:00 00 :00 Encounters Start End Encounter Admission Attending Care Care Encounter Date/Time Date/Time Type Type Clinicians Facility Department ID 2019-08-23 2019-08-23 [id number] 09:59:00 09:59:00 [facility] Medicine Medicine 2019-06-16 2019-06-16 [facility] [id number] 09:20:00 09:20:00 [facility] Medicine Medicine 2019-06-15 2019-06-15 [facility] [id number] 15:12:00 15:12:00 [facility] Medicine Medicine 2019-06-10 2019-06-10 [facility] [id number] 15:49:00 15:49:00 [facility] Medicine 2019-06-09 2019-06-09 [facility] [id number] 13:31:00 13:31:00 [facility] Medicine Medicine 2019-06-08 2019-06-08 [facility] [id number] 16:29:00 16:29:00 [facility] Medicine Medicine 2019-06-08 2019-06-08 [facility] [id number] 11:16:00 11:16:00 [facility] Medicine Medicine 2019-05-12 2019-05-12 [facility] [id number] 09:00:00 09:00:00 [facility] Medicine Results Test Description Test Time Test Comments Text Results Atomic Results Result Comments OUTSIDE 2019-07-05 Surgical Pathology Report CONSULTATION 18:56:00 Case: [id number] Authorizing Provider: Lenard Romero MD Collected: 06/03/2019 09 Ordering Location: [facility] Laboratory Received: 06/03/2019 0907 Pathologist: Josh Reeves MD Specimen: Biopsy, Liver, Received 5 slides from [facility] label [id number] OUTSIDE SLIDES, [id number], NEEDLE BIOPSIES OF LIVER, (DATE OF PROCEDURE 04/27/2019)- CIRRHOSIS- STEATOHEPATITIS ([place]/PARK) The case was discussed at the weekly liver biopsy conference held in the [facility] at [facility] on July 02, 2019. One HE stained slide is retained for our records.[id number], ascites, elevated liver enzymesOutside slides, [id number], liver needle core biopsy, date of procedure 04/27/2019, received from The Department of Pathology, [address] [address]Received five glass slides, each labeled [id number], along with the pathology report. Section shows three cores of liver parenchyma with greater than 10 portal tracts and is adequate for evaluation. Trichrome and reticulin stains show bridging fibrosis and micronodularity consistent with cirrhosis. Focal central to portal bridging fibrosis is seen. Extensive pericellular fibrosis is present. The fibrous septa show mild chronic lymphoplasmacytic inflammation and cholangiolar proliferation with associated neutrophils. The bile ducts are preserved and unremarkable. Rare focus of ductular cholestasis is present. There is diffuse steatosis, predominantly large droplet type involving about 60% of liver parenchyma. Foci of ballooning degeneration with well formed Marcia Denk hyaline are present. Mild lobular infiltration by neutrophils is seen. No hyaline globules are seen on PASD stain. Iron stain shows 2+ staining of the hepatocytes LIVER IMAGING, 2019-06-25 Referring: Dr. Panchal FINAL REPORT PATIENT ID: SPECT 16:46:00 [facility] Hepatiq [id number] PROCEDURE: processingRepeat scan LIVER/SPLEEN SCAN - SPECT to see the change w/Quantitative Analysis CPT from baseline from CODE: [id number] the scan 2 Weeks INDICATION: Cirrh osis prior PROTOCOL: 10.6 mCi of Tc-99m sulfur colloid was injected intravenously. Tomographic (SPECT) and selected planar images of the upper abdomen were obtained. Hepatic function was assessed by quantitative analysis using HEPATIQ software. FINDINGS: The liver is small with markedly decreased tracer activity. Perfused Hepatic Mass (PHM) by HEPATIQ was 19.3. (Reference Range = >100). Further details are included in the HEPATIQ report available in [facility] PACS. The spleen is mildly enlarged with relative increase in tracer activity. Activity in the bone marrow is markedly increased. IMPRESSION: 1. There is severe hepatocellular dysfunction, similar to the study of 05/27/2019.2. PHM is markedly decreased, similar to the previous study. Signed: Mag Estes MDReport Verified Date/Time: 06/25/2019 16:46:04 Reading Location: [address] Reading Room R IMAGING, 2019-05-27 Referring: Dr. Panchal FINAL REPORT PATIENT ID: SPECT 16:51:00 [facility] hepatiq [id number] PROCEDURE: processing LIVER/SPLEEN SCAN - TOMOGRAPHIC w/Quantitative Analysis CPT CODE: [id number] INDICATION: Hepatic Failure, cirrhosis PROTOCOL: 10.9 mCi of Tc-99m sulfur colloid was injected intravenously. Tomographic and selected planar images of the upper abdomen were obtained. Hepatic function was assessed by quantitative analysis using HEPATIQ software. FINDINGS: The liver has small with normal shape. Tracer activity in the liver is markedly decreased. Perfused Hepatic Mass (PHM) by HEPATIQ was 24.7. (Reference Range = >100). The spleen has mildly enlarged. Tracer activity in the spleen is uniform. Activity in the bone marrow is increased. IMPRESSION: 1. There is evidence of severe hepatocellular dysfunction.2. PHM is 24.7. Signed: Donta Morales Verified Date/Time: 05/27/2019 16:51:13 Reading Location: [address] Reading Room TITIS B SURFACE ANTIBODY 2019-05-20 19:46:00 Test Item Value Reference Range Comments HEPATITIS B SURFACE ANTIBODY (BEAKER) (test code = 647) 11.0 mIU /mL <8.0 Ship Pilot Dispatcher ID - DBHEPATITIS A ANTIBODY, [id number] 19:46:00 Test Item Value Reference Range Comments HEPATITIS A IGG ANTIBODY (BEAKER) (test code = Reactive N onreactive 0015) Ship Pilot Dispatcher ID - DBALPHA FETOPROTEIN (AFP), TUMOR [id number] 19:45:00 Test Item Value Reference Range Comments ALPHA-FETOPROTEIN (BEAKER) (test code = 1094) 4.6 ng/mL <1 0.0 Ship Pilot Dispatcher ID - [id number] 16:00:00 Test Item Value Reference Range Comments MAGNESIUM (BEAKER) (test code = 627) 1.8 mg/dL 1.6-2.6 Ship Pilot Dispatcher ID - BSBASIC METABOLIC [id number] 16:00:00 Test Item Value Reference Range Comments SODIUM (BEAKER) (test 136 meq/L 136-145 code = 381) POTASSIUM (BEAKER) (test 3.6 meq/L 3.5-5.1 code = 379) CHLORIDE (BEAKER) (test 105 meq/L 98-107 code = 382) CO2 (BEAKER) (test code = 23 meq/L 22-29 355) BLOOD UREA NITROGEN 8 mg/dL 7-21 (BEAKER) (test code = 354) CREATININE (BEAKER) (test 0.57 mg/dL 0.57-1.25 code = 358) GLUCOSE RANDOM (BEAKER) 80 mg/dL 70-105 (test code = 652) CALCIUM (BEAKER) (test 9.0 mg/dL 8.4-10.2 code = 697) EGFR (BEAKER) (test code 107 mL/min/1.73 sq m ES TIMATED GFR IS NOT = 1092) ACCURATE CREA TININE CLEARANCE IN PRE DICTING GLOMERULAR FILTR ATION RATE. ESTIMATED GFR IS NOT APPLICABLE F OR DIALYSIS PATIENT S. Ship Pilot Dispatcher ID - BSSpecimen markedly ictericHEPATIC FUNCTION [id number] 16:00:00 Test Item Value Reference Range Comments TOTAL PROTEIN (BEAKER) (test code = 770) 7.3 gm/dL 6.0-8.3 ALBUMIN (BEAKER) (test code = 1145) 3.1 g/dL 3.5-5.0 BILIRUBIN TOTAL (BEAKER) (test code = 377) 11.2 mg/dL 0.2-1 .2 BILIRUBIN DIRECT (BEAKER) (test code = 706) 3.8 mg/dL 0.1- 0.5 ALKALINE PHOSPHATASE (BEAKER) (test code = 346) 172 U/L 40-150 AST (SGOT) (BEAKER) (test code = 353) 54 U/L 5-34 ALT (SGPT) (BEAKER) (test code = 347) 23 U/L 6-55 Ship Pilot Dispatcher ID - BSSpecimen markedly ictericPROTHROMBIN TIME/[id number] 15:45:00 Test Item Value Reference Range Comments PROTIME (BEAKER) (test code = 759) 24.6 seconds 11.9-14.2 INR (BEAKER) (test code = 370) 2.3 <=5.9 Effective 09/16/2018: PT Reference Range ChangeNew: 11.9-14.2 Previous: 11.7- 14.7RECOMMENDED COUMADIN/WARFARIN INR THERAPY RANGESSTANDARD DOSE: 2.0-3.0 Includes: PROPHYLAXIS for venous thrombosis, systemic embolization; TREATMENT for venous thrombosis and/or pulmonary embolus.HIGH RISK: Target INR is2.5-3.5 for patients wiht mechanical heart valves.CBC W/PLT COUNT & AUTO [id number] 15:36:00 Test Item Value Reference Range Comments WHITE BLOOD CELL COUNT (BEAKER) (test code = 775) 6.2 K/ L 3.5-10.5 RED BLOOD CELL COUNT (BEAKER) (test code = 761) 2.06 M/ L 3.93-5.22 HEMOGLOBIN (BEAKER) (test code = 410) 8.1 GM/DL 11.2-15.7 HEMATOCRIT (BEAKER) (test code = 411) 23.7 % 34.1-44.9 MEAN CORPUSCULAR VOLUME (BEAKER) (test code = 115.0 fL 79 .4-94.8 753) MEAN CORPUSCULAR HEMOGLOBIN (BEAKER) (test code = 39.3 pg 25.6-32.2 751) MEAN CORPUSCULAR HEMOGLOBIN CONC (BEAKER) (test 34.2 GM/DL 32.2-35.5 code = 752) RED CELL DISTRIBUTION WIDTH (BEAKER) (test code = 18.5 % 11.7-14.4 412) PLATELET COUNT (BEAKER) (test code = 756) 74 K/CU MM 150-45 0 MEAN PLATELET VOLUME (BEAKER) (test code = 754) 9.5 fL 9.4-12.3 NUCLEATED RED BLOOD CELLS (BEAKER) (test code = 0 /100 WBC 0-0 413) NEUTROPHILS RELATIVE PERCENT (BEAKER) (test code 67 % = 429) LYMPHOCYTES RELATIVE PERCENT (BEAKER) (test code 16 % = 430) MONOCYTES RELATIVE PERCENT (BEAKER) (test code = 10 % 431) EOSINOPHILS RELATIVE PERCENT (BEAKER) (test code 7 % = 432) BASOPHILS RELATIVE PERCENT (BEAKER) (test code = 1 % 437) NEUTROPHILS ABSOLUTE COUNT (BEAKER) (test code = 4.15 K/ L 1.56-6.13 670) LYMPHOCYTES ABSOLUTE COUNT (BEAKER) (test code = 0.97 K/ L 1.18-3.74 414) MONOCYTES ABSOLUTE COUNT (BEAKER) (test code = 0.65 K/ L 0 .24-0.36 415) EOSINOPHILS ABSOLUTE COUNT (BEAKER) (test code = 0.41 K/ L 0.04-0.36 416) BASOPHILS ABSOLUTE COUNT (BEAKER) (test code = 0.03 K/ L 0 .01-0.08 417) IMMATURE GRANULOCYTES-RELATIVE PERCENT (BEAKER) 1 % 0-1 (test code = 2801)
--- OUTSIDE RECORDS SUMMARY | 2019-08-31 06:40 | XMS REPORT ---
:1955 Author Organization [employer] Care Team Providers Name Role Phone Isabella Amaya Provider Role Unavailable Allergies, Adverse Reactions, Alerts Substance Reaction Event Type Hydrocodone-Acetaminophen Info Not Available Drug Allergy Problems Problem Type Condition Code Onset Dates Condition Statu s Assessment Localized edema R60.0 Active Assessment Pneumonia of right lower lobe due to J18.9 Active infectious organism Assessment Jaundice R17 Active Assessment Alcoholic cirrhosis of liver with K70.31 Active ascites Problem Localized edema R60.0 Active Problem Pneumonia of right lower lobe due to J18.9 Active infectious organism Problem Jaundice R17 Active Problem Unsteady gait R26.81 Active Problem Jaundice due to hepatitis K75.9 Ac tive Problem Alcoholic cirrhosis of liver with K70.31 Active ascites Medications Medication Code System Code Instructions Start Date End Date Status Dosage Lactulose [facility] [id number] 20 GM/30ML Orally May 12, July 10, Active 30 ml Once a day 2019 2019 Results No Known Results Summary Purpose [employer] Submission
--- OUTSIDE RECORDS SUMMARY | 2019-08-31 06:40 | XMS REPORT ---
:1955 Author Organization [employer] Care Team Providers Name Role Phone Henry, Na Provider Role Unavailable Allergies No Known Allergies Problems Problem Type Condition Code Onset Dates Condition Statu s Problem Localized edema R60.0 Active Problem Pneumonia of right lower lobe due to J18.9 Active infectious organism Problem Jaundice R17 Active Problem Unsteady gait R26.81 Active Problem Jaundice due to hepatitis K75.9 Ac tive Problem Alcoholic cirrhosis of liver with K70.31 Active ascites Medications No Known Medications Results No Known Results Summary Purpose [employer] Submission
[2019-08-31 07:36] LABS: Protime INR 2.22
[2019-08-31 07:57] LABS: ALT/SGPT 22 U/L (12-78); AST/SGOT 45 U/L (15-37); Albumin 2.8 g/dL (3.4-5.0); Alkaline Phosphatase 156 U/L (45-117); BUN Blood Urea Nitrogen 6 mg/dL (7-18); Bicarbonate 23 mmol/L (21-32); Bilirubin Direct 5.2 mg/dL (0-0.2); Glucose Level 100 mg/dL (74-106); Magnesium 1.8 mg/dL (1.8-2.4); NT PRO-BNP 378 pg/mL (<125); Potassium 3.7 mmol/L (3.5-5.1); Protein, Total 7.1 g/dL (6.4-8.2); Sodium Level 138 mmol/L (136-145); Troponin (Emerg Dept Use Only) 0.05 ng/mL (0.0-0.045)
[2019-08-31 07:58] LABS: Bilirubin Total 16.4 mg/dL (0.2-1.0)
[2019-08-31] MEDS ORDERED: NA CHLORIDE 0.9% 1,000 ML ONE (08:08)
[2019-08-31] MEDS ORDERED: ACETAMINOPHEN 325 MG TABLET ONE (08:08)
--- NOTE | 2019-08-31 08:37 | RAD REPORT ---
EXAM DESCRIPTION: CT - Chest For Pe Angio - 08/31/2019 8:21 am CLINICAL HISTORY: Chest pain. shortness of breath COMPARISON: No comparisons TECHNIQUE: CT angiogram of the pulmonary arteries was performed with MIP. All CT scans are performed using dose optimization technique as appropriate and may include automated exposure control or mA/KV adjustment according to patient size. FINDINGS: No evidence of pulmonary thromboembolism. No acute aortic finding demonstrated. Moderate atelectasis or infiltrate is present in the right lung base. Mild interstitial pulmonary mary ma is seen. Large right pleural effusion. No concerning bony finding. The spleen appears enlarged. IMPRESSION: No evidence of pulmonary thromboembolism. Large right pleural effusion with right lower lung areas of atelectasis or pneumonia.
[2019-08-31 08:41] LABS: Absolute Lymphocytes (CBC) 0.6 K/uL (0.7-4.9); Basophils % 0.3 % (0-1.3); Hematocrit 23.1 % (36.0-45.0); Lymphocytes % 14.1 % (15.3-44.8); MPV 6.5 fL (7.6-11.3); RBC Red Blood Cell Count 2.01 M/uL (3.86-4.86)
--- NOTE | 2019-08-31 09:14 | EDPHYS ---
Physician Documentation [facility] Name: Opal Bahena Age: 64 yrs Sex: Female : 1955 Arrival Date: 08/31/2019 Time: 06:39 Bed 5 Private MD: ED Physician Dontae Ruvalcaba HPI: 08/30 06:49 This 64 yrs old Female presents to ER via Ambulatory with complaints of jmm Shortness Of Breath, Cough. 06:49 The patient or guardian reports cough, flu symptoms. Onset: The symptoms/episode jmm began/occurred gradually, 1 week(s) ago. Modifying factors: The symptoms are alleviated by nothing. Associated signs and symptoms: Pertinent positives: fever. This is a 64 year old female with a history of cirrhosis that presents to the ED with complaints of of cough for the past week with fever tmax of 101F beginning last night. Similar symptoms when diagnosed with pneumonia in May of this year. . Historical: - Allergies: 06:52 Hydrocodone-Acetaminophen; itching; ea - Home Meds: 06:52 lactulose 20 gram/30 mL Oral soln [Active]; ea - PMHx: 06:52 Cirrhosis; ea - PSHx: 06:52 left wrist; ea - Immunization history:: Adult Immunizations up to date. - Social history:: Smoking status: Patient denies any tobacco usage or history of. ROS: 06:49 Cardiovascular: Negative for chest pain, palpitations, and edema. jmm 06:49 Constitutional: Positive for body aches, fever. 06:49 Respiratory: Positive for cough, shortness of breath. 06:49 All other systems are negative. Exam: 06:49 Constitutional: This is a well developed, well nourished patient who is awake, alert, jmm and in no acute distress. Head/Face: atraumatic. Eyes: EOMI, no conjunctival erythema appreciated ENT: Moist Mucus Membranes Neck: Trachea midline, Supple Chest/axilla: Normal chest wall appearance and motion. Cardiovascular: Regular rate and rhythm. No edema appreciated Respiratory: Normal respirations, no respiratory distress appreciated Abdomen/GI: Non distended, soft Back: Normal ROM Skin: General appearance color normal MS/ Extremity: Moves all extremities, no obvious deformities appreciated, no edema noted to the lower extremities Neuro: Awake and alert, normal gait Psych: Behavior is normal, Mood is normal, Patient is cooperative and pleasant 06:49 Respiratory: the patient does not display signs of respiratory distress, Respirations: normal, Breath sounds: decreased breath sounds, that are mild, are located in both bases. Vital Signs: 06:46 BP 137 / 71; Pulse 95; Resp 19; Temp 98.7; Pulse Ox 100% ; Weight 49.9 kg; Height 5 ft. ea 3 in. (160.02 cm); 08:45 BP 133 / 60; Pulse 92; Resp 16 S; Pulse Ox 97% on R/A; aa5 09:30 BP 145 / 69; Pulse 95; Resp 20 S; Temp 98.8(O); Pulse Ox 97% on R/A; Pain 0/10; aa5 06:46 Body Mass Index 19.49 (49.90 kg, 160.02 cm) ea MDM: 06:49 Patient medically screened. [facility] 09:04 Data reviewed: vital signs, nurses notes. Counseling: I had a detailed discussion with campbell the patient and/or guardian regarding: the historical points, exam findings, and any diagnostic results supporting the discharge/admit diagnosis, lab results, radiology results, the need for further work-up and treatment in the hospital. ED course: I discussed the patient with Dr. Terrell whom accepted admission. I also discussed the patient with Dr. Pacheco whom stated Dr. Wood would consult on admission. . 05 06:51 Order name: Basic Metabolic Panel; Complete Time: 08:01 [facility] 08/30 06:51 Order name: CBC with Diff; Complete Time: 10:59 [facility] 08/30 06:51 Order name: LFT's; Complete Time: 08:01 [facility] 08/30 06:51 Order name: Magnesium; Complete Time: 08:02 [facility] 08/30 06:51 Order name: NT PRO-BNP; Complete Time: 08:01 [facility] 08/30 06:51 Order name: PT-INR; Complete Time: 08:01 [facility] 08/30 06:51 Order name: Troponin (emerg Dept Use Only); Complete Time: 08:02 [facility] 08/30 06:51 Order name: Blood Culture Adult (2) [facility] 08/30 06:51 Order name: Lactate; Complete Time: 08:02 [facility] 08/30 06:51 Order name: Procalcitonin; Complete Time: 08:20 [facility] 08/30 06:59 Order name: Flu; Complete Time: 08:20 [facility] 08/30 07:37 Order name: AMMONIA; Complete Time: 08:14 08/30 08:45 Order name: CBC Smear Scan; Complete Time: 10:59 [facility] 08/30 09:18 Order name: COVID-19 aa5 08/30 06:51 Order name: XRAY Chest (1 view); Complete Time: 10:59 [facility] 08/30 06:51 Order name: EKG; Complete Time: 06:52 [facility] 08/30 06:51 Order name: Cardiac monitoring; Complete Time: 07:39 [facility] 08/30 06:51 Order name: EKG - Nurse/Tech; Complete Time: 07:16 [facility] 08/30 06:51 Order name: IV Saline Lock; Complete Time: 07:39 [facility] 08/30 06:51 Order name: Labs collected and sent; Complete Time: 07:39 [facility] 08/30 06:51 Order name: O2 Per Protocol; Complete Time: 07:39 [facility] 08/30 06:51 Order name: O2 Sat Monitoring; Complete Time: 07:39 [facility] 08/30 07:00 Order name: Urine Dipstick-Ancillary (obtain specimen); Complete Time: 10:08 [facility] 08/30 07:54 Order name: Labs - recollect needed: recollect cbc; Complete Time: 08:17 08/30 08:03 Order name: CT Chest For PE Angio; Complete Time: 08:40 [facility] 08/30 09:52 Order name: CORONAVIRUS; Complete Time: 09:54 [facility] 08/30 10:43 Order name: Urine Dipstick--Ancillary (enter results) 08/30 11:05 Order name: Urine Dipstick-Ancillary EDMS Administered Medications: 08:03 Drug: NS 0.9% 1000 ml Route: IV; Rate: 1 bolus; Site: right forearm; aa5 10:13 Follow up: IV Status: Infusion continued upon admission aa5 08:08 CANCELLED (Physician Discretion): Tylenol 650 mg PO once iw Disposition: 19:00 Co-signature as Attending Physician, Dontae Ruvalcaba MD. rn Disposition: 08/31/19 09:13 Hospitalization ordered by Prince Mayra for Inpatient Admission. Preliminary diagnosis are Pneumonia, Elevated Troponin, Unspecified cirrhosis of liver. - Bed requested for Telemetry/MedSurg (Inpatient). - Status is Inpatient Admission. aa5 - Condition is Stable. - Problem is an acute exacerbation. - Symptoms are unchanged. Signatures: Dispatcher [employer] EDMS Nubia Caro Diana, RN RN Ambrocio Denton PA PA [facility] Lynn Schaffer, RN RN Dontae Ruvalcaba MD MD rn Calderon, Audri, RN RN [facility] Lori Ohara RN RN ea Corrections: (The following items were deleted from the chart) 08:08 07:47 Tylenol 650 mg PO once ordered. [facility] 08:08 08:08 Tylenol 650 mg PO once ordered. [facility] 09:40 09:13 Hospitalization Ordered by Prince Mayra HUNTER for Inpatient Admission. Preliminary diagnosis is Pneumonia; Elevated Troponin; Unspecified cirrhosis of liver. Bed requested for Telemetry/MedSurg (Inpatient). Status is Inpatient Admission. Condition is Stable. Problem is an acute exacerbation. Symptoms are unchanged. [facility] 11:06 09:40 08/31/2019 09:13 Hospitalization Ordered by Prince Mayra HUNTER for Inpatient aa5 Admission. Preliminary diagnosis is Pneumonia; Elevated Troponin; Unspecified cirrhosis of liver. Bed requested for Telemetry/MedSurg (Inpatient). Status is Inpatient Admission. Condition is Stable. Problem is an acute exacerbation. Symptoms are unchanged. dw
--- NOTE | 2019-08-31 09:14 | ER ---
Nurse's Notes [facility] Name: Opal Bahena Age: 64 yrs Sex: Female : 1955 Arrival Date: 08/31/2019 Time: 06:39 Bed 5 Private MD: Diagnosis: Pneumonia;Elevated Troponin;Unspecified cirrhosis of liver Presentation: 08/30 06:46 Chief complaint: Patient states: Reports she has been having cough x 1 week, SOB that ea started yesterday and fever for the last couple days. Coronavirus screen: Patient reports a cough. Patient reports shortness of breath or difficulty breathing. Patient denies measured and/or subjective temperature greater than 100.4F prior to today's visit. Patient denies travel on a cruise ship or to a country the [facility] currently lists as an affected area. Patient denies contact with known and/or suspected case of COVID-19. Ebola Screen: No symptoms or risks identified at this time. Initial Sepsis Screen: Does the patient meet any 2 criteria? No. Patient's initial sepsis screen is negative. Does the patient have a suspected source of infection? No. Patient's initial sepsis screen is negative. Risk Assessment: Do you want to hurt yourself or someone else? Patient reports no desire to harm self or others. Onset of symptoms was August 31, 2019. 06:46 Method Of Arrival: Ambulatory ea 06:46 Acuity: JACQUI 3 ea 07:05 Coronavirus screen: Surgical mask placed on patient. Patient moved to private room, aa5 placed in contact and droplet isolation with eye protection until further assessment. Triage Assessment: 06:51 General: Appears uncomfortable, Behavior is appropriate for age. Pain: Denies pain. ea Neuro: Level of Consciousness is awake, alert, obeys commands, Oriented to person, place, time. Respiratory: Reports shortness of breath Onset: The symptoms/episode began/occurred yesterday, the patient has mild shortness of breath. Derm: Skin is jaundiced. Historical: - Allergies: 06:52 Hydrocodone-Acetaminophen; itching; ea - Home Meds: 06:52 lactulose 20 gram/30 mL Oral soln [Active]; ea - PMHx: 06:52 Cirrhosis; ea - PSHx: 06:52 left wrist; ea - Immunization history:: Adult Immunizations up to date. - Social history:: Smoking status: Patient denies any tobacco usage or history of. Screenin:48 Abuse screen: Denies threats or abuse. Nutritional screening: No deficits noted. ea Tuberculosis screening: No symptoms or risk factors identified. Fall Risk None identified. Assessment: 07:08 General: Appears comfortable, Behavior is calm, cooperative. Pain: Denies pain. Neuro: aa5 Level of Consciousness is awake, alert, obeys commands, Oriented to person, place, time, situation. Cardiovascular: Heart tones S1 S2 present Rhythm is regular. Respiratory: Reports shortness of breath cough that is non-productive, Airway is patent Respiratory effort is even, unlabored, Respiratory pattern is regular, symmetrical, Breath sounds are diminished in left posterior lower lobe, right posterior middle lobe and right posterior lower lobe. GI: Abdomen is round Bowel sounds present X 4 quads. Abd is non tender X 4 quads. : No signs and/or symptoms were reported regarding the genitourinary system. EENT: No signs and/or symptoms were reported regarding the EENT system. Derm: Skin is dry, Skin is jaundiced, Skin temperature is warm. Musculoskeletal: Range of motion: intact in all extremities. 08:15 Reassessment: Pt to CT via stretcher . [facility] 09:10 Reassessment: PA at bedside speaking to pt . [facility] 09:10 Neuro: Level of Consciousness is awake, alert, obeys commands, Oriented to person, aa5 place, time, situation. Respiratory: Airway is patent Respiratory effort is even, unlabored, Respiratory pattern is regular, symmetrical. Derm: Skin is dry, Skin is jaundiced, Skin temperature is warm. 10:13 Reassessment: Awaiting repeat lactate to be drawn by lab before pt is transported to [facility] Room 416. 10:13 Neuro: Level of Consciousness is awake, alert, obeys commands, Oriented to person, aa5 place, time, situation. Respiratory: Airway is patent Respiratory effort is even, unlabored, Respiratory pattern is regular, symmetrical. Derm: Skin is dry, Skin is jaundiced, Skin temperature is warm. Vital Signs: 06:46 BP 137 / 71; Pulse 95; Resp 19; Temp 98.7; Pulse Ox 100% ; Weight 49.9 kg; Height 5 ft. ea 3 in. (160.02 cm); 08:45 BP 133 / 60; Pulse 92; Resp 16 S; Pulse Ox 97% on R/A; aa5 09:30 BP 145 / 69; Pulse 95; Resp 20 S; Temp 98.8(O); Pulse Ox 97% on R/A; Pain 0/10; aa5 06:46 Body Mass Index 19.49 (49.90 kg, 160.02 cm) ea ED Course: 06:39 Patient arrived in ED. ag3 06:40 Ambrocio Denton PA is PHCP. jmm 06:40 Dontae Ruvalcaba MD is Attending Physician. jmm 06:48 Triage completed. ea 06:49 Arm band placed on right wrist. Patient placed in an exam room, on a stretcher, on ea pulse oximetry. 06:50 Patient has correct armband on for positive identification. Bed in low position. ea 07:16 EKG done, by ED staff. ea 07:20 Initial lab(s) drawn, by me, sent to lab. Inserted saline lock: 22 gauge in right aa5 forearm, using aseptic technique. Blood collected. 07:20 First set of blood cultures drawn by me. aa5 07:29 XRAY Chest (1 view) In Process Unspecified. EDMS 07:32 Flu and/or RSV swab sent to lab. aa5 07:39 Bhavna Roldan, TREVON is Primary Nurse. aa5 07:40 Second set of blood cultures drawn by lab staff. aa5 07:58 Notified Nurse Practitioner and/or Physician Cross Cut Saw Operator of a critical lab result(s), iw Lactate=2.5, T. Bili=16.4. 08:21 CT Chest For PE Angio In Process Unspecified. EDMS 09:13 Prince Nunez MD is Hospitalizing Provider. jmm 10:10 No provider procedures requiring assistance completed. Patient admitted, IV remains in aa5 place. Administered Medications: 08:03 Drug: NS 0.9% 1000 ml Route: IV; Rate: 1 bolus; Site: right forearm; aa5 10:13 Follow up: IV Status: Infusion continued upon admission aa5 08:08 CANCELLED (Physician Discretion): Tylenol 650 mg PO once iw Outcome: 09:13 Decision to Hospitalize by Provider. jmm 10:13 Admitted to Med/surg accompanied by tech, via stretcher, with chart, Other with mask aa5 Report called to TREVON Dooley 10:13 Condition: stable 10:13 Instructed on the need for admit, Demonstrated understanding of instructions. 11:06 Patient left the ED. aa5 Signatures: Dispatcher [employer] EDMS Ambrocio Denton PA PA jmm Williams, Irene RN Bhavna Mensah RN RN aa5 Lori Ohara RN RN ea Gomez, Alice ag3
[2019-08-31 10:41] LABS: Blood Morphology Comment NOTED (NOT SEEN); Macrocytosis 2+; Platelet Estimate DECR; Polychromasia 1+; Urine White Blood Cell Casts OK
--- NOTE | 2019-08-31 10:41 | RAD REPORT ---
EXAM DESCRIPTION: RAD - Chest Single View - 08/31/2019 7:29 am CLINICAL HISTORY: shortness of breath, fever Chest pain. COMPARISON: Chest Single View dated 06/09/2019 FINDINGS: Portable technique limits examination quality. Moderate right sided pleural effusion is noted. Underlying atelectasis or pneumonia is possible. The heart is mildly prominent size. No displaced fractures.
[2019-08-31 10:42] LABS: Anisocytosis 2+
[2019-08-31 11:04] LABS: Urine Blood 1+ (NEG); Urine Glucose NEGATIVE (NEG); Urine Protein NEGATIVE (NEG); Urine pH 6.5 (5.0-7.0)
--- NOTE | 2019-08-31 11:14 | EKG ---
Test Date: 2019-08-31 Test Time: 07:12:41 Hip Hop Dance Instructor: BARBER MEASUREMENT RESULTS: Intervals: Rate: 90 OK: 116 QRSD: 94 QT: 394 QTc: 481 Altheimer: P: 27 OK: 116 QRS: 8 T: 57 INTERPRETIVE STATEMENTS: Normal sinus rhythm Anterior infarct, age undetermined Abnormal ECG No previous ECG available for comparison Electronically Signed On 08-31-19 11:12:32 CDT by Abisai Burger
--- NOTE | 2019-08-31 12:04 | P.HP ---
Certification for Inpatient Patient admitted to: Observation With expected LOS: <2 Midnights Patient will require the following post-hospital care: None Practitioner: I am a practitioner with admitting privileges, knowledge of patient current condition, hospital course, and medical plan of care. Services: Services provided to patient in accordance with Admission requirements found in Title 42 Section 412.3 of the Code of Federal Regulations Patient History Date of Service: 08/31/19 Reason for admission: SHORTNESS of breath History of Present Illness: Patient is a 64 year old female with decompensated alcoholic cirrhosis with ascites who presents to the ER with an acutely worsening shortness of breath. 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 She has no fever, chills or cough. She follows up with a Hepatology in [place] and is currently being considered for liver transplantation. Her last drink was 6 months ago. Otherwise, she has no other cardiopulmonary co-morbidities. Allergies hydrocodone Allergy (Verified 08/31/19 11:36) Itching Home Medications: Lactulose 20 gm PO PRN 08/31/19 Physical Examination - Vital Signs Temperature: 98.8 F Blood Pressure: 145/69 Pulse: 95 Respirations: 20 - Physical Exam General: Alert, Cooperative, Cachectic, Other (Jaundiced) HEENT: Atraumatic, Normocephalic, PERRLA, EOMI Neck: Supple Respiratory: Diminished, Other (Dimished breath sounds on the R sided) Cardiovascular: Regular rate/rhythm, Normal S1 S2, Other (mild ankle edema) Gastrointestinal: Soft and benign, Ascites Neurological: Normal speech, Normal tone, Normal affect - Studies Laboratory Data (last 24 hrs) 08/31/19 08:12: WBC 4.2 L, Hgb 8.3 L, Hct 23.1 L, Plt Count 82 L 08/31/19 07:20: PT 25.8 H, INR 2.22 08/31/19 07:20: Sodium 138, Potassium 3.7, BUN 6 L, Creatinine 0.48 L, Glucose 100, Magnesium 1.8, Total Bilirubin 16.4 H*, AST 45 H, ALT 22, Alkaline Phosphatase 156 H Microbiology Data (last 24 hrs): 08/31/19 07:32 Nasopharnyx Influenza Type A Antigen Screen - Final 08/31/19 07:32 Nasopharnyx Influenza Type B Antigen Screen - Final Assessment and Plan - Problems (Diagnosis) (1) Acute respiratory distress Current Visit: Yes Status: Acute (2) Decompensation of cirrhosis of liver Current Visit: Yes Status: Acute (3) Large pleural effusion Current Visit: Yes Status: Acute - Advance Directives Does patient have a Living Will: No Does patient have a Durable POA for Healthcare: No Physician Review Additional Text: Assessment Patient is a 64 year old female with decomepnsated alcoholic cirrhosis admitted with progressively worsening shortness of breath. Pulmonary embolism was ruled out but CTA chest revealed a large volume pleural effusion. She is currently on room air Acute respiratory distress Large pleural effusion Decompensated alcoholic cirrhosis PLAN: Discontinue IVF Start IV lasix 40 mg BID Consulted radiology for therapeutic thoracentesis Resume home dose of lactulose
[2019-08-31 12:40] VITALS: BMI 19.5
[2019-08-31] MEDS ORDERED: LORazepam 2 MG/ML VIAL IV ONE (12:52)
--- NOTE | 2019-08-31 14:05 | RAD REPORT ---
EXAM DESCRIPTION: MRI - Cholangiogram - 08/31/2019 1:48 pm CLINICAL HISTORY: Contours, abdominal pain, biliary obstruction COMPARISON: CT chest August 30 TECHNIQUE: Axial and coronal heavily T2 weighted sequences were obtained. Coronal T2 HASTE fat satur ation static and coronal multiplane reconstruction imaging generated and reviewed. Horizontal and nadya tical axis rotational views obtained using maximum intensity projection (MIP) protocol. FINDINGS: Exam has significant motion degradation limitation. The common bile duct is 5 mm in diamet er. The duct in the head of the pancreas is not optimally visualized. The intrahepatic ducts and the common hepatic duct and central branches are poorly visualized. Large right pleural effusion and abdominal ascites are noted. Liver, spleen, kidney pancreatic anatom ic assessment is very limited on MRCP imaging. IMPRESSION: Motion degraded study showing no dilatation of the common bile duct and no intraductal s tone confirmed. The intrahepatic ducts, central common hepatic duct and associated branches are poorly visualized due to motion.
[2019-08-31] MEDS: FUROSEMIDE 40 MG/4 ML VIAL IV SCH (16:54)
[2019-09-01 05:01] VITALS: O2SAT 91
[2019-09-01] MEDS ORDERED: LACTULOSE 20 GM/30 ML UCUP PO PRN (08:00)
[2019-09-01] MEDS: FUROSEMIDE 40 MG/4 ML VIAL IV SCH (08:27)
--- NOTE | 2019-09-01 10:28 | P.DS ---
Admission Date: 08/31/19 Discharge Date: 09/01/19 Disposition: ROUTINE DISCHARGE Discharge Condition: GOOD Reason for Admission: SHORTNESS of breath - Problems (1) Acute respiratory distress Current Visit: Yes Status: Acute (2) Decompensation of cirrhosis of liver Current Visit: Yes Status: Acute (3) Large pleural effusion Current Visit: Yes Status: Acute Brief History of Present Illness: Patient is a 64 year old female with decompensated alcoholic cirrhosis with ascites who presents to the ER with an acutely worsening shortness of breath. 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 She has no fever, chills or cough. She follows up with a Hepatology in [place] and is currently being considered for liver transplantation. Her last drink was 6 months ago. Otherwise, she has no other cardiopulmonary co-morbidities. Hospital Course: Patient is a 64 year old female with decompensated alcoholic cirrhosis with ascites admitted with shortness of breath. She was found to have a large R sided pleural effusion. She underwent a therapeutic thoracentesis the following day without complications. 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 Vital Signs/Physical Exam: Temp Pulse Resp BP Pulse Ox 98.2 F 93 H 18 130/59 L 91 09/01/19 08:00 09/01/19 08:00 09/01/19 08:00 09/01/19 08:00 09/01/19 08:00 General: Alert, In no apparent distress, Cooperative HEENT: Atraumatic, PERRLA, EOMI, Scleral icterus Neck: Supple Respiratory: Diminished, Other (Diminished breath sounds - R lung [place]) Gastrointestinal: Distended, Ascites Musculoskeletal: Swelling Integumentary: No rashes, No breakdown, No significant lesion, No tenderness/swelling, No erythema, No warmth, No cyanosis Neurological: Normal speech, Sensation intact, Normal affect Laboratory Data at Discharge: WBC 4.2 K/uL (4.3-10.9) L 08/31/19 08:12 Hgb 8.3 g/dL (12.0-15.0) L 08/31/19 08:12 Hct 23.1 % (36.0-45.0) L 08/31/19 08:12 Plt Count 82 K/uL (152-406) L 08/31/19 08:12 PT 25.8 SECONDS (9.5-12.5) H 08/31/19 07:20 INR 2.22 08/31/19 07:20 Sodium 138 mmol/L (136-145) 08/31/19 07:20 Potassium 3.7 mmol/L (3.5-5.1) 08/31/19 07:20 BUN 6 mg/dL (7-18) L 08/31/19 07:20 Creatinine 0.48 mg/dL (0.55-1.3) L 08/31/19 07:20 Glucose 100 mg/dL (74-106) 08/31/19 07:20 Magnesium 1.8 mg/dL (1.8-2.4) 08/31/19 07:20 Total Bilirubin 16.4 mg/dL (0.2-1.0) H* 08/31/19 07:20 AST 45 U/L (15-37) H 08/31/19 07:20 ALT 22 U/L (12-78) 08/31/19 07:20 Alkaline Phosphatase 156 U/L (45-117) H 08/31/19 07:20 Home Medications: Lactulose 20 gm PO PRN 08/31/19 Diet: AHA
--- NOTE | 2019-09-01 12:44 | P.DS ---
Admission Date: 08/31/19 Discharge Date: 09/01/19 Disposition: ROUTINE DISCHARGE Discharge Condition: GOOD Reason for Admission: SHORTNESS of breath - Problems (1) Acute respiratory distress Current Visit: Yes Status: Acute (2) Decompensation of cirrhosis of liver Current Visit: Yes Status: Acute (3) Large pleural effusion Current Visit: Yes Status: Acute Brief History of Present Illness: Patient is a 64 year old female with decompensated alcoholic cirrhosis with ascites who presents to the ER with an acutely worsening shortness of breath. 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 She has no fever, chills or cough. She follows up with a Hepatology in [place] and is currently being considered for liver transplantation. Her last drink was 6 months ago. Otherwise, she has no other cardiopulmonary co-morbidities. Hospital Course: Patient is a 64 year old female with decompensated alcoholic cirrhosis with ascites admitted with shortness of breath. She was found to have a large R sided pleural effusion. I started patient on IV lasix. There was a plan since admission to proceed with a therapeutic thoracentesis. However, the patient requested to first discuss with her portable router operator. By the time she agreed to have the procedure, Radiology was unavalabile to perform thoracentesis. Since there will not be any Radiologist to perform the procedure for the next 2 days, a decision was made to discharge the patient and follow up with her portable router operator. She will be continued on oral furosemide. Vital Signs/Physical Exam: Temp Pulse Resp BP Pulse Ox 98.2 F 93 H 18 130/59 L 91 09/01/19 08:00 09/01/19 08:00 09/01/19 08:00 09/01/19 08:00 09/01/19 08:00 General: Alert, In no apparent distress, Cooperative, Other (jaundiced) HEENT: Atraumatic, Normocephalic, EOMI, Scleral icterus Neck: Supple Respiratory: Clear to auscultation bilaterally, Diminished (Diminished lung sounds - R lung [place]) Cardiovascular: Regular rate/rhythm, Normal S1 S2, Edema (bilateral pitting edema) Gastrointestinal: Soft and benign, No guarding, Ascites Musculoskeletal: No clubbing, No swelling, No contractures, No erythema, Swelling Integumentary: Other (jaundice) Neurological: Normal speech, Sensation intact, Normal affect Laboratory Data at Discharge: WBC 4.2 K/uL (4.3-10.9) L 08/31/19 08:12 Hgb 8.3 g/dL (12.0-15.0) L 08/31/19 08:12 Hct 23.1 % (36.0-45.0) L 08/31/19 08:12 Plt Count 82 K/uL (152-406) L 08/31/19 08:12 PT 25.8 SECONDS (9.5-12.5) H 08/31/19 07:20 INR 2.22 08/31/19 07:20 Sodium 138 mmol/L (136-145) 08/31/19 07:20 Potassium 3.7 mmol/L (3.5-5.1) 08/31/19 07:20 BUN 6 mg/dL (7-18) L 08/31/19 07:20 Creatinine 0.48 mg/dL (0.55-1.3) L 08/31/19 07:20 Glucose 100 mg/dL (74-106) 08/31/19 07:20 Magnesium 1.8 mg/dL (1.8-2.4) 08/31/19 07:20 Total Bilirubin 16.4 mg/dL (0.2-1.0) H* 08/31/19 07:20 AST 45 U/L (15-37) H 08/31/19 07:20 ALT 22 U/L (12-78) 08/31/19 07:20 Alkaline Phosphatase 156 U/L (45-117) H 08/31/19 07:20 Home Medications: Lactulose 20 gm PO PRN 08/31/19 Furosemide 40 mg PO DAILY #30 tablet 09/01/19 New Medications: Furosemide 40 mg PO DAILY #30 tablet Diet: AHA
[2019-09-01 14:10] VITALS: BP 119/59; TEMP 97.5
== END 2019-09-01 14:00 | disposition home or self-care (01) | DRG 187 ==
LOC: ER 06:36 → ERHOLD 08:59 → 4TH 10:09 → 2ND 17:58
PROVIDERS: ADMIT Internal Medicine; ATTEND Internal Medicine
PROC: 8E0ZXY6 Isolation (ICD-10-PCS; principal; 2019-08-31)
DX: J90 Pleural effusion, not elsewhere classified (principal); R64 Cachexia; Z68.1 Body mass index [BMI] 19.9 or less, adult; R06.03 Acute respiratory distress; K70.31 Alcoholic cirrhosis of liver with ascites; Z53.29 Procedure and treatment not carried out because of patient's decision for other reasons; Z79.899 Other long term (current) drug therapy; Z20.828 Contact with and (suspected) exposure to other viral communicable diseases; Z88.5 Allergy status to narcotic agent
CPT/HCPCS: 36415; 71045; 71275; 74181; 80048; 80076; 81003; 82140; 83605; 83735; 83880; 84145; 84484; 85025; 85610; 87040; 87205; 87804; 93005; 96360; 96361; 99285; J1940; J7030; Q9967; U0002